=== PATIENT | female | born 2000 | race Caucasian/White ===

== ENCOUNTER 2019-03-12 19:07 | Inpatient (IN) | payer MEDICAID, OTHER ==
[2019-03-12] MEDS: Lactated Ringers 1,000 ML IV SCH (22:03)
[2019-03-12] MEDS ORDERED: Sodium Chloride 0.9% 10 ML Syringe FLUSH PRN ×2 (22:59→23:05)
[2019-03-13] MEDS: Lactated Ringers 1,000 ML IV SCH ×6 (01:15→22:30)
[2019-03-13] MEDS ORDERED: Lidocaine 2% 20 ML MDV INJECT ONE (09:49)
[2019-03-13] MEDS ORDERED: Oxytocin 10 Units/1 ML SDV IV ONE (09:49)
[2019-03-13] MEDS ORDERED: Midazolam 1 MG/ML 2 ML SDV IV ONE (09:49)
[2019-03-13] MEDS ORDERED: fentaNYL 100 MCG/2 ML SDV IV ONE (09:49)
[2019-03-13] MEDS ORDERED: ceFAZolin 1 GM Vial IV ONE (09:49)
[2019-03-13] MEDS ORDERED: Bupivacaine 0.25% 30 ML SDV INJECT ONE (09:49)
[2019-03-13] MEDS ORDERED: HYDROmorphone 2 MG/ML SDV IV ONE (09:49)
[2019-03-13] MEDS ORDERED: fentaNYL 400 MCG in Ropivacaine HCl/PF 200 ML IV ONE (09:49)
[2019-03-13] MEDS ORDERED: Naloxone 0.4 MG/ML SDV IVPUSH PRN ×2 (10:31→13:43)
[2019-03-13] MEDS ORDERED: Ondansetron 4 MG/2 ML SDV IVPUSH PRN (10:31)
[2019-03-13] MEDS ORDERED: diphenhydrAMINE 50 MG/ML SDV IV PRN (10:31)
[2019-03-13] MEDS ORDERED: ePHEDrine 50 MG/ML SDV IVPUSH PRN ×2 (10:31→13:43)
[2019-03-13] MEDS ORDERED: Promethazine 6.25 MG in Sodium Chloride 0.9% 50 ML IV PRN (10:31)
[2019-03-13] MEDS ORDERED: Promethazine 12.5 MG in Sodium Chloride 0.9% 50 ML IV PRN (10:31)
[2019-03-13] MEDS ORDERED: Lactated Ringers 500 ML IV SCH (10:45)
[2019-03-13] MEDS ORDERED: Scopolamine 1.5 MG Transdermal Patch TRDERM PRN (11:35)
[2019-03-13] MEDS ORDERED: Citric Acid/Sodium Citrate Solution 30 ML Cup PO ONE (11:35)
[2019-03-13] MEDS ORDERED: ceFAZolin 1 GM Vial IVPUSH ONE (11:38)
[2019-03-13] MEDS ORDERED: Carboprost Tromethamine 250 MCG/1 ML Amp IM ONE (13:07)
[2019-03-13] MEDS ORDERED: diphenhydrAMINE 50 MG/ML SDV IVPUSH PRN (13:43)
[2019-03-13] MEDS ORDERED: Labetalol 20 MG/4 ML Syringe IVPUSH STA (16:44)
[2019-03-13] MEDS ORDERED: Labetalol 20 MG/4 ML Syringe IVPUSH ONE (17:04)
--- NOTE | 2019-03-13 17:12 | PCM.LDHP ---
L&D History of Present Illness - General Date of Service: 03/13/19 Admit Problem/Dx: Patient Status Order with Admit Dx/Problem 03/12/19 22:00 Admission Status [Patient Status] [ADT] Routine 03/13/19 08:30 Admission Status [Patient Status] [ADT] Routine Admission Diagnosis/Problem Admission Diagnosis/Problem -related examination Source of Information: Patient History Limitations: Reports: No Limitations - History of Present Illness Introduction:: Admitted for latent labor. Mild to mod contractions - Related Data Allergies/Adverse Reactions: Allergies Allergy/AdvReac Type Severity Reaction Status Date / Time No Known Allergies Allergy Verified 03/12/19 18:07 Past Medical History - Past Health History Medical/Surgical History: Denies Medical/Surgical History [employer] History: Reports: Other OB/BYN History: edc 03/16/19 Other Musculoskeletal History: states she sprained her back @ 10 yrs old and now occassionally will have back spams Psychiatric History: Reports: Anxiety Other Psychiatric History: does have "anxiety" at times but takes no meds for anxiety Social & Family History - Family History Family Medical History: Noncontributory - Tobacco Use Smoking Status *Q: Never Smoker Second Hand Smoke Exposure: No - Caffeine Use Caffeine Use: Reports: None - Recreational Drug Use Recreational Drug Use: No H&P Review of Systems - Review of Systems: Review Of Systems: Comprehensive ROS is negative, except as noted in HPI. L&D Exam - Exam Exam: See Below - Vital Signs Vital Signs: Last Vital Signs Temp 98 F 03/13/19 15:45 Pulse 91 03/13/19 16:15 Resp 16 03/13/19 15:45 BP 150/125 H 03/13/19 16:15 Pulse Ox 100 03/13/19 15:46 Weight: 72.802 kg - OB Specific Contraction Duration (sec): 60-80 Contraction Frequency (min): 1.5-2 Contraction Intensity: Strong - Burk Score Burk Score Cervix Position: Midposition Burk Score Consistency: Firm Burk Score Dilation: 1-2 cm Burk Score Infant's Station: -3 - Exam General: Alert, Oriented HEENT: PERRLA, Conjunctiva Clear, EACs Clear, EOMI, Hearing Intact, Mucosa Moist & [place], Nares Patent, Normal Nasal Septum, Posterior Pharynx Clear, TMs Clear Neck: Supple, Trachea Midline Lungs: Clear to Auscultation, Normal Respiratory Effort Cardiovascular: Regular Rate, Regular Rhythm GI/Abdominal Exam: Normal Bowel Sounds, Soft, Non-Tender, No Organomegaly, No Distention, No Abnormal Bruit, No Mass, Pelvis Stable Rectal Exam: Normal Exam, Normal Rectal Tone Genitourinary: Normal external exam, Normal bimanual exam, Normal speculum exam Back Exam: Normal Inspection, Full Range of Motion Extremities: Normal Inspection, Normal Range of Motion, Non-Tender, No Pedal Edema, Normal Capillary Refill Skin: Warm, Dry, Intact Neurological: Cranial Nerves Intact, Reflexes Equal Bilateral Psychiatric: Alert, Normal Affect, Normal Mood - Patient Data Lab Results Last 24 hrs: Laboratory Results - last 24 hr 03/12/19 03/13/19 03/13/19 Range/Units 19:31 11:40 11:40 WBC 8.1 (4.5-12.0) X10-3/uL RBC 3.84 (3.23-5.20) x10(6)uL Hgb 10.3 L (11.5-15.5) g/dL Hct 32.0 (30.0-51.3) % MCV 83.3 (80-96) fL MCH 26.8 L (27.7-33.6) pg MCHC 32.2 (32.2-35.4) g/dL RDW 13.0 (11.5-15.5) % Plt Count 254 (125-369) X10(3)uL MPV 7.5 (7.4-10.4) fL Add Manual Diff Yes Neutrophils % (Manual) 68 (46-82) % Band Neutrophils % 6 (0-6) % Lymphocytes % (Manual) 17 (13-37) % Monocytes % (Manual) 6 (4-12) % Eosinophils % (Manual) 1 (0-5) % Metamyelocytes % 2 H (0-0) % Membrane Rupture Negative (NEGATIVE) Blood Type A POSITIVE Gel Antibody Screen Negative Result Diagrams: 03/13/19 11:40 - Problem List (1) Prolonged latent phase of labor SNOMED Code(s): 011659945 ICD Code: O63.0 - PROLONGED FIRST STAGE (OF LABOR) Status: Acute Current Visit: Yes Problem List Initiated/Reviewed/Updated: Yes Orders Last 24hrs: Active Orders 24 hr Category Date Time Status Admission Status [Patient Status] [ADT] Routine ADT 03/13/19 08:30 Active Ambulate [RC] PER UNIT ROUTINE Care 03/13/19 13:43 Active Bedrest [RC] ASDIRECTED Care 03/13/19 10:31 Active Monitoring [RC] CONTINUOUS Care 03/13/19 10:31 Active Notify Provider [RC] STAT Care 03/12/19 21:25 Active Oxygen Therapy [RC] ASDIRECTED Care 03/13/19 10:31 Active Pasero Opioid Induced Sedation [RC] Q1H Care 03/13/19 10:31 Active Peripheral IV Care [RC] . DIRECTED Care 03/13/19 10:31 Active RT Incentive Spirometry [RC] Q4HWA Care 03/13/19 13:43 Active Urinary Catheter Assessment [RC] 08,16,00 Care 03/13/19 10:31 Active Vital Signs [RC] PER UNIT ROUTINE Care 03/12/19 21:25 Active Vital Signs [RC] Q4H Care 03/13/19 13:43 Active Wound Care [RC] QSHIFT Care 03/13/19 13:43 Active Clear Liquid Diet [DIET] Diet 03/12/19 Dinner Active CBC WITH AUTO DIFF [HEME] AM Lab 03/14/19 05:11 Ordered PATIENT RETYPE [BBK] Routine Lab 03/13/19 11:40 Results TYPE AND SCREEN [BBK] Routine Lab 03/13/19 11:40 Results Labetalol [Normodyne] Med 03/13/19 17:04 Once 10 mg IVPUSH ONETIME ONE Lactated Ringers [Ringers, Lactated] 1,000 ml Med 03/13/19 13:45 Active IV ASDIRECTED Naloxone [Narcan] Med 03/13/19 13:43 Active 0.1 mg IVPUSH ONETIME PRN Ondansetron [Zofran] Med 03/13/19 10:31 Active 4 mg IVPUSH Q6H PRN Oxytocin/Normal Saline [Pitocin in NS 20 Units/1,000 ML Med 03/12/19 21:31 Active ] 20 unit in 1,000 ml IV TITRATE Promethazine [Phenergan] 12.5 mg Med 03/13/19 10:31 Active Sodium Chloride 0.9% [Normal Saline] 50 ml IV Q6H Promethazine [Phenergan] 6.25 mg Med 03/13/19 10:31 Active Sodium Chloride 0.9% [Normal Saline] 50 ml IV Q4H Scopolamine [Transderm-Scop] Med 03/13/19 11:35 Active 1.5 mg TRDERM Q72H PRN Sodium Chloride 0.9% [Saline Flush] Med 03/12/19 23:05 Active 10 ml FLUSH ASDIRECTED PRN diphenhydrAMINE [Benadryl] Med 03/13/19 13:43 Active 25 mg IVPUSH Q6H PRN ePHEDrine [ePHEDrine sulfate] Med 03/13/19 13:43 Active 5 mg IVPUSH ASDIRECTED PRN Do Not Administer Anticoagulant Meds [AST] Per Unit Oth 03/13/19 10:31 Ordered Routine Do Not Administer IV Narcs or Sedatives [AST] Per Unit Oth 03/13/19 10:31 Ordered Routine Epidural Catheter Management [OM.PC] Urgent Oth 03/13/19 10:31 Ordered Peripheral IV Insertion Adult [OM.PC] Routine Oth 03/12/19 22:59 Ordered Respiratory Rate [OM.PC] Routine Oth 03/13/19 10:31 Ordered Resuscitation Status Routine Resus Stat 03/13/19 13:43 Ordered Medication Orders Diphenhydramine HCl (Benadryl) 25 mg IVPUSH Q6H PRN PRN Reason: Itching or Nausea Ephedrine Sulfate (Ephedrine Sulfate) 5 mg IVPUSH ASDIRECTED PRN PRN Reason: Other Oxytocin/Sodium Chloride (Pitocin In Ns 20 Units/1,000 Ml) 20 unit in 1,000 mls @ 6 mls/hr IV TITRATE PRN; Protocol PRN Reason: IV Use Last Titration: 03/13/19 05:08 Dose: 4 munits/min, 12 mls/hr Admin: 03/12/19 22:01 Dose: 2 munits/min, 6 mls/hr Promethazine HCl 6.25 mg/ (Sodium Chloride) 50.25 mls @ 200 mls/hr IV Q4H PRN PRN Reason: Nausea/Vomiting Promethazine HCl 12.5 mg/ (Sodium Chloride) 50.5 mls @ 200 mls/hr IV Q6H PRN PRN Reason: Nausea/Vomiting Lactated Ringer's (Ringers, Lactated) 1,000 mls @ 250 mls/hr IV ASDIRECTED SOCRATES Labetalol HCl (Normodyne) 10 mg IVPUSH ONETIME ONE; Protocol Stop: 03/13/19 17:05 Naloxone HCl (Narcan) 0.1 mg IVPUSH ONETIME PRN PRN Reason: Respiratory Depression Ondansetron HCl (Zofran) 4 mg IVPUSH Q6H PRN PRN Reason: Nausea/Vomiting Scopolamine (Transderm-Scop) 1.5 mg TRDERM Q72H PRN PRN Reason: Nausea Last Admin: 03/13/19 12:06 Dose: 1.5 mg Sodium Chloride (Saline Flush) 10 ml FLUSH ASDIRECTED PRN PRN Reason: Keep Vein Open Assessment/Plan Comment:: We started pit last night to augment labor
--- NOTE | 2019-03-13 17:43 | OR ---
DATE OF OPERATION: 03/13/2019 PROCEDURE: Primary , lower uterine segment, transverse. CLINICAL RESEARCH MONITOR: Dr. Pan. PREOPERATIVE DIAGNOSIS: Nonreassuring heart tones. POSTOPERATIVE DIAGNOSES: Nonreassuring heart tones, preeclampsia, and nuchal cord. PERMISSION: The patient and the significant other agreed to the risks and benefits of this procedure. PROCEDURE DETAILS: The patient was taken to the OR, where the epidural was found to be adequate. She was placed in the usual supine position with a leftward tilt. She was draped and prepped in the usual sterile fashion. A Pfannenstiel incision was made along the lower abdominal area and carried to the underlying fascia, which was scored in the middle. This was carried with Guidry scissors to the lateral aspects. Using Lindy clamps, the fascia was dissected sharply from the rectus muscles, both inferiorly and superiorly. The muscles were in the middle and the peritoneum was entered sharply. After adequate exposure, a bladder blade was inserted and bladder reflection of the visceral peritoneum was placed around the lower uterine segment. Using a scalpel, the uterus was entered in a transverse fashion in the lower uterine segment. Then, the fingers were used to extend the incision. The baby was delivered. Nuchal cord encountered and reduced. The rest of the baby was delivered without any problems. The uterus was boggy and atonic, necessitating Pitocin and Hemabate intrauterine injection. This incision was closed in 2 layers and one suture of the [id number] was needed to achieve adequate hemostasis. After irrigation, the uterus was returned to the abdomen. The fascia was closed in one layer using 0 chromic. Then, the skin and subcutaneous tissue were closed with a 3-0 running stitch. The counts for sponges, needles, and instruments were correct x3. Estimated blood loss was about 600 mL. Urine was clear after the procedure. The Uribe catheter was left in situ. The patient was transferred to the Recovery. The baby had score of 8 and 9, and vigorous male infant. Please note that the patient did get 2 g of Ancef preoperatively on the table and afterwards, blood pressure was noted to be high, going up to 160/110. She did not complain of any vomiting or abdominal pain or headaches. /[id number] [place]/MICHELE MACIASD
[2019-03-13] MEDS ORDERED: Labetalol 20 MG/4 ML Syringe IVPUSH PRN (18:21)
[2019-03-13] MEDS: HYDROmorphone 2 MG/ML SDV IVPUSH PRN (21:57)
[2019-03-14] MEDS: Lactated Ringers 1,000 ML IV SCH ×2 (02:30→05:27)
[2019-03-14] MEDS: HYDROmorphone 2 MG/ML SDV IVPUSH PRN (03:45)
[2019-03-14] MEDS ORDERED: Acetaminophen/oxyCODONE 325-5 MG Tab PO PRN (08:20)
--- NOTE | 2019-03-14 08:26 | PCM.PNPP ---
- General Info Date of Service: 03/14/19 Subjective Update: Patient had elevated blood pressures yesterday evening going up to 160 systolic. The labetalol was used one time. She denies headache, chest pain or shortness of breath today. Urine output is good but pain is uncontrolled. Functional Status: Reports: Tolerating Diet. Denies: Pain Controlled, Ambulating - Review of Systems General: Denies: Fever HEENT: Reports: No Symptoms Pulmonary: Reports: No Symptoms Cardiovascular: Reports: No Symptoms Gastrointestinal: Reports: No Symptoms Genitourinary: Reports: No Symptoms Musculoskeletal: Reports: Shoulder Pain - General Info Date of Service: 03/14/19 - Patient Data Vital Signs - Most Recent: Last Vital Signs Temp 98.7 F 03/13/19 23:00 Pulse 125 H 03/14/19 06:00 Resp 18 03/14/19 03:00 BP 141/91 H 03/14/19 06:00 Pulse Ox 95 03/14/19 01:00 Weight - Most Recent: 72.802 kg I&O - Last 24 Hours: Intake & Output 03/13/19 03/14/19 03/14/19 22:59 06:59 14:59 Intake Total 2421 1806 Output Total 1700 Balance 721 1806 Lab Results - Last 24 Hours: Laboratory Results - last 24 hr 03/13/19 03/13/19 03/13/19 Range/Units 11:40 11:40 17:17 WBC 8.1 (4.5-12.0) X10-3/uL RBC 3.84 (3.23-5.20) x10(6)uL Hgb 10.3 L (11.5-15.5) g/dL Hct 32.0 (30.0-51.3) % MCV 83.3 (80-96) fL MCH 26.8 L (27.7-33.6) pg MCHC 32.2 (32.2-35.4) g/dL RDW 13.0 (11.5-15.5) % Plt Count 254 (125-369) X10(3)uL MPV 7.5 (7.4-10.4) fL Neut % (Auto) (46-82) % Lymph % (Auto) (13-37) % [place] % (Auto) (4-12) % Eos % (Auto) (1.0-5.0) % Baso % (Auto) (0-2) % Neut # (Auto) (1.6-8.3) # Lymph # (Auto) (0.6-5.0) # [place] # (Auto) (0.0-1.3) # Eos # (Auto) (0.0-0.8) # Baso # (Auto) (0.0-0.2) # Add Manual Diff Yes Neutrophils % (Manual) 68 (46-82) % Band Neutrophils % 6 (0-6) % Lymphocytes % (Manual) 17 (13-37) % Monocytes % (Manual) 6 (4-12) % Eosinophils % (Manual) 1 (0-5) % Metamyelocytes % 2 H (0-0) % Sodium (135-145) mmol/L Potassium (3.5-5.3) mmol/L Chloride (100-110) mmol/L Carbon Dioxide (21-32) mmol/L BUN (7-18) mg/dL Creatinine (0.55-1.02) mg/dL Est Cr Clr Drug Dosing mL/min Estimated GFR (MDRD) (>60) BUN/Creatinine Ratio (9-20) Glucose (80-116) mg/dL Calcium (8.6-10.2) mg/dL Total Bilirubin (0.1-1.3) mg/dL AST (5-25) IU/L ALT (12-36) U/L Alkaline Phosphatase (56-112) IU/L Total Protein (6.0-8.0) g/dL Albumin (3.5-5.2) g/dL Globulin g/dL Albumin/Globulin Ratio Urine Color Yellow (YELLOW) Urine Appearance Clear (CLEAR) Urine pH 7.0 H (5.0-6.5) Ur Specific [place] 1.010 (1.010-1.025) Urine Protein Negative (NEGATIVE) mg/dL Urine Glucose (UA) Normal (NORMAL) mg/dL Urine Ketones Negative (NEGATIVE) mg/dL Urine Occult Blood Negative (NEGATIVE) Urine Nitrite Negative (NEGATIVE) Urine Bilirubin Negative (NEGATIVE) Urine Urobilinogen Normal (NEGATIVE) mg/dL Ur Leukocyte Esterase Negative (NEGATIVE) Urine RBC 20-30 H (0-5) Urine WBC 0-5 (0-5) Ur Squamous Epith Cells Occasional (NS,R,O) Urine Bacteria Few H (NS) Blood Type A POSITIVE Gel Antibody Screen Negative 03/13/19 03/14/19 Range/Units 17:29 06:14 WBC 10.8 (4.5-12.0) X10-3/uL RBC 3.28 (3.23-5.20) x10(6)uL Hgb 9.0 L (11.5-15.5) g/dL Hct 27.3 L (30.0-51.3) % MCV 83.2 (80-96) fL MCH 27.4 L (27.7-33.6) pg MCHC 32.9 (32.2-35.4) g/dL RDW 13.1 (11.5-15.5) % Plt Count 224 (125-369) X10(3)uL MPV 7.6 (7.4-10.4) fL Neut % (Auto) 81.9 (46-82) % Lymph % (Auto) 10.8 L (13-37) % [place] % (Auto) 7.1 (4-12) % Eos % (Auto) 0 L (1.0-5.0) % Baso % (Auto) 0 (0-2) % Neut # (Auto) 8.8 H (1.6-8.3) # Lymph # (Auto) 1.2 (0.6-5.0) # [place] # (Auto) 0.8 (0.0-1.3) # Eos # (Auto) 0.0 (0.0-0.8) # Baso # (Auto) 0.0 (0.0-0.2) # Add Manual Diff Neutrophils % (Manual) (46-82) % Band Neutrophils % (0-6) % Lymphocytes % (Manual) (13-37) % Monocytes % (Manual) (4-12) % Eosinophils % (Manual) (0-5) % Metamyelocytes % (0-0) % Sodium 143 (135-145) mmol/L Potassium 4.2 (3.5-5.3) mmol/L Chloride 107 (100-110) mmol/L Carbon Dioxide 26 (21-32) mmol/L BUN 6 L (7-18) mg/dL Creatinine 0.6 (0.55-1.02) mg/dL Est Cr Clr Drug Dosing 118.29 mL/min Estimated GFR (MDRD) > 60 (>60) BUN/Creatinine Ratio 10.0 (9-20) Glucose 77 L (80-116) mg/dL Calcium 8.3 L (8.6-10.2) mg/dL Total Bilirubin 0.4 (0.1-1.3) mg/dL AST 20 (5-25) IU/L ALT 9 L (12-36) U/L Alkaline Phosphatase 246 H (56-112) IU/L Total Protein 5.4 L (6.0-8.0) g/dL Albumin 1.9 L (3.5-5.2) g/dL Globulin 3.5 g/dL Albumin/Globulin Ratio 0.5 Urine Color (YELLOW) Urine Appearance (CLEAR) Urine pH (5.0-6.5) Ur Specific [place] (1.010-1.025) Urine Protein (NEGATIVE) mg/dL Urine Glucose (UA) (NORMAL) mg/dL Urine Ketones (NEGATIVE) mg/dL Urine Occult Blood (NEGATIVE) Urine Nitrite (NEGATIVE) Urine Bilirubin (NEGATIVE) Urine Urobilinogen (NEGATIVE) mg/dL Ur Leukocyte Esterase (NEGATIVE) Urine RBC (0-5) Urine WBC (0-5) Ur Squamous Epith Cells (NS,R,O) Urine Bacteria (NS) Blood Type Gel Antibody Screen Med Orders - Current: Current Medications Diphenhydramine HCl (Benadryl) 25 mg IVPUSH Q6H PRN PRN Reason: Itching or Nausea Ephedrine Sulfate (Ephedrine Sulfate) 5 mg IVPUSH ASDIRECTED PRN PRN Reason: Other Promethazine HCl 6.25 mg/ (Sodium Chloride) 50.25 mls @ 200 mls/hr IV Q4H PRN PRN Reason: Nausea/Vomiting Promethazine HCl 12.5 mg/ (Sodium Chloride) 50.5 mls @ 200 mls/hr IV Q6H PRN PRN Reason: Nausea/Vomiting Ibuprofen (Motrin) 600 mg PO Q6H SOCRATES Labetalol HCl (Normodyne) 10 mg IVPUSH Q4H PRN; Protocol PRN Reason: Hypertension Naloxone HCl (Narcan) 0.1 mg IVPUSH ONETIME PRN PRN Reason: Respiratory Depression Ondansetron HCl (Zofran) 4 mg IVPUSH Q6H PRN PRN Reason: Nausea/Vomiting Oxycodone/Acetaminophen (Percocet 325-5 Mg) 1 tab PO Q4H PRN PRN Reason: Breakthrough Pain Scopolamine (Transderm-Scop) 1.5 mg TRDERM Q72H PRN PRN Reason: Nausea Last Admin: 03/13/19 12:06 Dose: 1.5 mg Sodium Chloride (Saline Flush) 10 ml FLUSH ASDIRECTED PRN PRN Reason: Keep Vein Open Last Admin: 03/13/19 22:00 Dose: 10 ml Discontinued Medications Carboprost Tromethamine (Hemabate Ds) 250 mcg IM .STK-MED ONE Stop: 03/13/19 13:08 Last Admin: 03/13/19 13:07 Dose: 250 mcg Cefazolin Sodium (Ancef) 2 gm IVPUSH ONETIME ONE Stop: 03/13/19 11:39 Last Admin: 03/13/19 12:06 Dose: 2 gm Citric Acid/Sodium Citrate (Bicitra Solution) 30 ml PO ONETIME ONE Stop: 03/13/19 11:36 Last Admin: 03/13/19 12:05 Dose: 30 ml Diphenhydramine HCl (Benadryl) 25 mg IV ASDIRECTED PRN PRN Reason: Pruritus Ephedrine Sulfate (Ephedrine Sulfate) 5 mg IVPUSH ASDIRECTED PRN PRN Reason: Hypotension Hydromorphone HCl (Dilaudid) 1 mg IVPUSH Q2H PRN PRN Reason: Breakthrough Pain Last Admin: 03/14/19 03:45 Dose: 1 mg Lactated Ringer's (Ringers, Lactated) 1,000 mls @ 125 mls/hr IV ASDIRECTED SOCRATES Last Admin: 03/13/19 13:49 Dose: 125 mls/hr Oxytocin 20 unit/ Sodium (Chloride) 1,002 mls @ 6.01 mls/hr IV TITRATE SOCRATES; Protocol Oxytocin/Sodium Chloride (Pitocin In Ns 20 Units/1,000 Ml) 20 unit in 1,000 mls @ 6 mls/hr IV TITRATE PRN; Protocol PRN Reason: IV Use Last Titration: 03/13/19 05:08 Dose: 4 munits/min, 12 mls/hr Lactated Ringer's (Ringers, Lactated) 1,000 mls @ 999 mls/hr IV BOLUS SOCRATES Lactated Ringer's (Ringers, Lactated) 1,000 mls @ 250 mls/hr IV ASDIRECTED SOCRATES Last Admin: 03/14/19 05:27 Dose: 250 mls/hr Labetalol HCl (Normodyne) 20 mg IVPUSH ONETIME STA; Protocol Stop: 03/13/19 16:45 Last Admin: 03/13/19 18:25 Dose: Not Given Labetalol HCl (Normodyne) 10 mg IVPUSH ONETIME ONE; Protocol Stop: 03/13/19 17:05 Last Admin: 03/13/19 17:31 Dose: 10 mg Naloxone HCl (Narcan) 0.1 mg IVPUSH ONETIME PRN PRN Reason: Sedation Sodium Chloride (Saline Flush) 10 ml FLUSH ASDIRECTED PRN PRN Reason: Keep Vein Open - Infant Interaction Infant Disposition, : [place] in Room with Family Feeding: Attempted ; Nursed Fair/Poor Support Person: Significant Other - Recovery Exam Fundal Tone: Firm Fundal Level: 1 Fingerbreadths Above Umbilicus Fundal Placement: Midline Lochia Amount: Small Lochia Color: Rubra/Red Perineum Description: Edematous Episiotomy/Laceration: None Bladder Status: Indwelling Catheter in Place Urinary Elimination: Indwelling Catheter - Exam General: Alert, Oriented HEENT: Pupils Equal Neck: Supple Lungs: Clear to Auscultation Cardiovascular: Regular Rate, Tachycardia GI/Abdominal Exam: Soft Skin: Warm Wound/Incisions: Healing Well, Dressing Dry and Intact, No Drainage Psy/Mental Status: Normal Affect, Normal Mood - Problem List & Annotations (1) care and examination SNOMED Code(s): 420874018, 155636986 Code(s): Z39.2 - ENCOUNTER FOR ROUTINE FOLLOW-UP Status: Acute Current Visit: Yes (2) Prolonged latent phase of labor SNOMED Code(s): 092271772 Code(s): O63.0 - PROLONGED FIRST STAGE (OF LABOR) Status: Acute Current Visit: Yes (3) Delivery by section SNOMED Code(s): 341896060 Code(s): LFR8951 - Status: Acute Current Visit: Yes (4) Gestational hypertension SNOMED Code(s): 948645993 Code(s): O13.9 - GESTATIONAL HTN W/O SIGNIFICANT PROTEINURIA, UNSP TRIMESTER Status: Acute Current Visit: Yes Qualifiers: Trimester: third trimester Qualified Code(s): O13.3 - Gestational [ -induced] hypertension without significant proteinuria, third trimester (5) Tachycardia SNOMED Code(s): 1703653 Code(s): R00.0 - TACHYCARDIA, UNSPECIFIED Status: Acute Current Visit: Yes - Problem List Review Problem List Initiated/Reviewed/Updated: Yes - My Orders Last 24 Hours: My Active Orders 03/13/19 08:30 Admission Status [Patient Status] [ADT] Routine 03/13/19 11:35 Scopolamine [Transderm-Scop] 1.5 mg TRDERM Q72H PRN 03/13/19 13:43 Ambulate [RC] PER UNIT ROUTINE RT Incentive Spirometry [RC] Q4HWA Vital Signs [RC] 00,04,08,12,16,20 Wound Care [RC] QSHIFT Naloxone [Narcan] 0.1 mg IVPUSH ONETIME PRN diphenhydrAMINE [Benadryl] 25 mg IVPUSH Q6H PRN ePHEDrine [ePHEDrine sulfate] 5 mg IVPUSH ASDIRECTED PRN Resuscitation Status Routine 03/13/19 18:21 Labetalol [Normodyne] 10 mg IVPUSH Q4H PRN 03/14/19 08:20 Urinary Catheter Removal [RC] Per Unit Routine Acetaminophen/oxyCODONE [Percocet 325-5 MG] 1 tab PO Q4H PRN Convert IV to Saline Lock [OM.PC] Urgent 03/14/19 08:30 Ibuprofen [Motrin] 600 mg PO Q6H 03/14/19 Lunch Regular Diet [DIET] - Plan Plan:: Discontinue IV fluids and Uribe. Start Percocet for pain control and Motrin. Encourage ambulation, advance to oral regular diet. Observe blood pressure and tachycardia. Do not seems to be good urine proteins were negative and liver functions were normal.
[2019-03-14] MEDS: Ibuprofen 600 MG Tab PO SCH ×3 (08:47→20:38)
[2019-03-15] MEDS: Ibuprofen 600 MG Tab PO SCH ×4 (02:57→19:37)
--- NOTE | 2019-03-15 08:16 | PCM.PNPP ---
- General Info Date of Service: 03/15/19 Functional Status: Reports: Pain Controlled - Review of Systems General: Reports: No Symptoms Pulmonary: Reports: No Symptoms Gastrointestinal: Reports: Diarrhea - General Info Date of Service: 03/15/19 - Patient Data Vital Signs - Most Recent: Last Vital Signs Temp 98 F 03/15/19 04:00 Pulse 91 03/15/19 04:00 Resp 18 03/15/19 04:00 BP 139/85 03/15/19 04:00 Pulse Ox 96 03/15/19 04:00 Weight - Most Recent: 72.802 kg Med Orders - Current: Current Medications Diphenhydramine HCl (Benadryl) 25 mg IVPUSH Q6H PRN PRN Reason: Itching or Nausea Ephedrine Sulfate (Ephedrine Sulfate) 5 mg IVPUSH ASDIRECTED PRN PRN Reason: Other Promethazine HCl 6.25 mg/ (Sodium Chloride) 50.25 mls @ 200 mls/hr IV Q4H PRN PRN Reason: Nausea/Vomiting Promethazine HCl 12.5 mg/ (Sodium Chloride) 50.5 mls @ 200 mls/hr IV Q6H PRN PRN Reason: Nausea/Vomiting Ibuprofen (Motrin) 600 mg PO Q6H SOCRATES Last Admin: 03/15/19 02:57 Dose: 600 mg Labetalol HCl (Normodyne) 10 mg IVPUSH Q4H PRN; Protocol PRN Reason: Hypertension Naloxone HCl (Narcan) 0.1 mg IVPUSH ONETIME PRN PRN Reason: Respiratory Depression Ondansetron HCl (Zofran) 4 mg IVPUSH Q6H PRN PRN Reason: Nausea/Vomiting Oxycodone/Acetaminophen (Percocet 325-5 Mg) 1 tab PO Q4H PRN PRN Reason: Breakthrough Pain Last Admin: 03/14/19 13:04 Dose: 1 tab Scopolamine (Transderm-Scop) 1.5 mg TRDERM Q72H PRN PRN Reason: Nausea Last Admin: 03/13/19 12:06 Dose: 1.5 mg Sodium Chloride (Saline Flush) 10 ml FLUSH ASDIRECTED PRN PRN Reason: Keep Vein Open Last Admin: 03/13/19 22:00 Dose: 10 ml Discontinued Medications Carboprost Tromethamine (Hemabate Ds) 250 mcg IM .STK-MED ONE Stop: 03/13/19 13:08 Last Admin: 03/13/19 13:07 Dose: 250 mcg Cefazolin Sodium (Ancef) 2 gm IVPUSH ONETIME ONE Stop: 03/13/19 11:39 Last Admin: 03/13/19 12:06 Dose: 2 gm Citric Acid/Sodium Citrate (Bicitra Solution) 30 ml PO ONETIME ONE Stop: 03/13/19 11:36 Last Admin: 03/13/19 12:05 Dose: 30 ml Diphenhydramine HCl (Benadryl) 25 mg IV ASDIRECTED PRN PRN Reason: Pruritus Ephedrine Sulfate (Ephedrine Sulfate) 5 mg IVPUSH ASDIRECTED PRN PRN Reason: Hypotension Hydromorphone HCl (Dilaudid) 1 mg IVPUSH Q2H PRN PRN Reason: Breakthrough Pain Last Admin: 03/14/19 03:45 Dose: 1 mg Lactated Ringer's (Ringers, Lactated) 1,000 mls @ 125 mls/hr IV ASDIRECTED SOCRATES Last Admin: 03/13/19 13:49 Dose: 125 mls/hr Oxytocin 20 unit/ Sodium (Chloride) 1,002 mls @ 6.01 mls/hr IV TITRATE SOCRATES; Protocol Oxytocin/Sodium Chloride (Pitocin In Ns 20 Units/1,000 Ml) 20 unit in 1,000 mls @ 6 mls/hr IV TITRATE PRN; Protocol PRN Reason: IV Use Last Titration: 03/13/19 05:08 Dose: 4 munits/min, 12 mls/hr Lactated Ringer's (Ringers, Lactated) 1,000 mls @ 999 mls/hr IV BOLUS SOCRATES Lactated Ringer's (Ringers, Lactated) 1,000 mls @ 250 mls/hr IV ASDIRECTED SOCRATES Last Admin: 03/14/19 05:27 Dose: 250 mls/hr Labetalol HCl (Normodyne) 20 mg IVPUSH ONETIME STA; Protocol Stop: 03/13/19 16:45 Last Admin: 03/13/19 18:25 Dose: Not Given Labetalol HCl (Normodyne) 10 mg IVPUSH ONETIME ONE; Protocol Stop: 03/13/19 17:05 Last Admin: 03/13/19 17:31 Dose: 10 mg Naloxone HCl (Narcan) 0.1 mg IVPUSH ONETIME PRN PRN Reason: Sedation Sodium Chloride (Saline Flush) 10 ml FLUSH ASDIRECTED PRN PRN Reason: Keep Vein Open - Infant Interaction Disposition, : in Room with Family Feeding: Attempted ; Nursed Fair/Poor Support Person: Significant Other - Recovery Exam Fundal Tone: Firm Fundal Level: At Umbilicus Fundal Placement: Midline Lochia Amount: Small Lochia Color: Rubra/Red Perineum Description: Edematous Episiotomy/Laceration: None Bladder Status: Voiding Urinary Elimination: Voided - Exam General: Alert, Oriented HEENT: Pupils Equal Skin: Warm Neurological: No New Focal Deficit Psy/Mental Status: Alert - Problem List & Annotations (1) care and examination SNOMED Code(s): 297985453, 600786888 Code(s): Z39.2 - ENCOUNTER FOR ROUTINE FOLLOW-UP Status: Acute Current Visit: Yes (2) Prolonged latent phase of labor SNOMED Code(s): 443930327 Code(s): O63.0 - PROLONGED FIRST STAGE (OF LABOR) Status: Acute Current Visit: Yes (3) Delivery by section SNOMED Code(s): 647350057 Code(s): YNF7117 - Status: Acute Current Visit: Yes (4) Gestational hypertension SNOMED Code(s): 920376310 Code(s): O13.9 - GESTATIONAL HTN W/O SIGNIFICANT PROTEINURIA, UNSP TRIMESTER Status: Acute Current Visit: Yes Qualifiers: Trimester: third trimester Qualified Code(s): O13.3 - Gestational [ -induced] hypertension without significant proteinuria, third trimester (5) Tachycardia SNOMED Code(s): 8072356 Code(s): R00.0 - TACHYCARDIA, UNSPECIFIED Status: Acute Current Visit: Yes - Problem List Review Problem List Initiated/Reviewed/Updated: Yes - My Orders Last 24 Hours: My Active Orders 03/14/19 08:00 Ibuprofen [Motrin] 600 mg PO Q6H 03/14/19 08:20 Urinary Catheter Removal [RC] Per Unit Routine Acetaminophen/oxyCODONE [Percocet 325-5 MG] 1 tab PO Q4H PRN Convert IV to Saline Lock [OM.PC] Urgent 03/14/19 Lunch Regular Diet [DIET] - Plan Plan:: Continue current management and DC tomorrow
[2019-03-16] MEDS: Ibuprofen 600 MG Tab PO SCH ×2 (02:08→08:42)
--- NOTE | 2019-03-16 12:35 | DISCH ---
DISCHARGE DATE: 03/16/2019 REASON FOR ADMISSION: 1. Early-onset labor. 2. Intrauterine . DISCHARGE DIAGNOSES: 1. Primary low-transverse section. 2. Gestational hypertension. BRIEF HISTORY: This is a 18-year-old female admitted because of uterine contractions, augmented with Pitocin, but due to nonreassuring heart tones, underwent a on Friday. Postop, she was noted to have elevated blood pressures and even onetime needed labetalol. However, she did not have any protein in the urine and her blood pressure improved progressively. She has, otherwise, done well and is ready to go home today. DISCHARGE MEDICATIONS: 1. vitamins. 2. Motrin 600 mg every 6 hours. FOLLOWUP: With me in the office in 1 week. Please note that I spent more than 35 minutes in the discharge of the patient. /[id number] LITTLE/MICHELE
== END 2019-03-16 09:50 | disposition home or self-care (01) | DRG 788 ==
LOC: FB.OBCHECK 19:07 → FB.OB 19:07 → UNDOADMOB 19:07 → FB.OB 19:07 → UNDOADMOB 19:08 → FB.OB 19:08 → FB.OBCHECK 21:59 → FB.OB 22:00 → EDSTATUS 23:04 → FB.OB 03-13 08:29 → FB.OBCHECK 03-13 08:29 → OBSVTOIN 03-13 08:30 → UNDOADMIN 03-13 08:30 → FB.OB 03-13 08:30 → UNDODISIN 03-16 09:50
PROVIDERS: ADMIT Family Medicine; ATTEND Family Medicine
PROC: 10D00Z1 Extraction of Products of Conception, Low, Open Approach (ICD-10-PCS; principal; 2019-03-13)
DX: O63.0 Prolonged first stage (of labor) (principal); O13.4 Gestational [pregnancy-induced] hypertension without significant proteinuria, complicating childbirth; O14.94 Unspecified pre-eclampsia, complicating childbirth; Z37.0 Single live birth; Z3A.39 39 weeks gestation of pregnancy
CPT/HCPCS: 36415; 51702; 59409; 80053; 81001; 84112; 85025; 86850; 86900; 86901; 88307; 99211; A9270-GY; J0690; J1170; J2001; J2250; J2590; J2795; J3010; J3490; J7120

== ENCOUNTER 2020-03-06 02:20 | Emergency (ER) | payer SELFPAY ==
--- NOTE | 2020-03-06 03:24 | EDM.PDOC ---
ED HPI GENERAL MEDICAL PROBLEM - General Chief Complaint: Genitourinary Problem Stated Complaint: PELVIC PAIN Time Seen by Provider: 03/06/20 02:30 Source of Information: Reports: Patient History Limitations: Reports: No Limitations - History of Present Illness INITIAL COMMENTS - FREE TEXT/NARRATIVE: pt has burning sensation with urination , vaginal discharge with odor , has no back pain ,no fever or chills States her prior sexual partner has chlamydia Onset: Today Onset Date: 03/06/20 Duration: Hour(s):, Getting Worse Location: Reports: Abdomen Quality: Reports: Ache, Burning Severity: Moderate Improves with: Reports: None Worsens with: Reports: None Associated Symptoms: Reports: No Other Symptoms burning pain with voiding Pain Score (Numeric/FACES): 8 - Related Data Allergies Allergy/AdvReac Type Severity Reaction Status Date / Time No Known Allergies Allergy Verified 03/12/19 18:07 Home Meds: Home Meds Ibuprofen [Motrin] 600 mg PO Q6H #30 tablet 03/16/19 [Rx] Sulfamethoxazole/Trimethoprim [Bactrim Ds Tablet] 1 each PO BID #14 tablet 03/06/20 [Rx] Past Medical History - Past Health History Medical/Surgical History: Denies Medical/Surgical History 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 Other Musculoskeletal History: states she sprained her back @ 10 yrs old and now occassionally will have back spams Psychiatric History: Reports: Anxiety Other Psychiatric History: does have "anxiety" at times but takes no meds for anxiety Social & Family History - Family History Family Medical History: No Pertinent Family History - Tobacco Use Tobacco Use Status *Q: Current Every Day Tobacco User Years of Tobacco use: 1 Packs/Tins Daily: 0.2 - Caffeine Use Caffeine Use: Reports: Coffee - Recreational Drug Use Recreational Drug Use: No ED ROS GENERAL - Review of Systems Review Of Systems: Comprehensive ROS is negative, except as noted in HPI. ED EXAM, RENAL/ - Physical Exam Exam: See Below Exam Limited By: No Limitations General Appearance: Alert, WD/WN, No Apparent Distress Nose: Normal Inspection Throat/Mouth: Normal Oropharynx Head: Atraumatic, Normocephalic Neck: Supple, Non-Tender Respiratory/Chest: No Respiratory Distress, Lungs Clear Cardiovascular: Regular Rate, Rhythm GI/Abdominal: Soft, No Abnormal Bruit (Female) Exam: Deferred Rectal (Female) Exam: Deferred Back Exam: Normal Inspection, Full Range of Motion Neurological: Alert, Oriented, CN II-XII Intact Psychiatric: Normal Affect, Normal Mood Skin Exam: Warm, Dry, Intact Course - Vital Signs Last Recorded V/S: Last Vital Signs Temp 36.4 C 03/06/20 04:15 Pulse 88 03/06/20 04:15 Resp 17 03/06/20 04:15 BP 124/71 03/06/20 04:15 Pulse Ox 100 03/06/20 04:15 - Orders/Labs/Meds Orders: Active Orders 24 hr Category Date Time Status CHLAMYDIA/GC AMPLIFICATION Routine Lab 03/06/20 04:05 Received CULTURE URINE [RM] Stat Lab 03/06/20 02:51 Received Labs: Laboratory Tests 03/06/20 Range/Units 02:51 Urine Color Yellow (YELLOW) Urine Appearance Slightly cloudy (CLEAR) Urine pH 5.0 (5.0-6.5) Ur Specific [place] 1.030 H (1.010-1.025) Urine Protein Trace (NEGATIVE) mg/dL Urine Glucose (UA) Normal (NORMAL) mg/dL Urine Ketones 15 H (NEGATIVE) mg/dL Urine Occult Blood Large H (NEGATIVE) Urine Nitrite Negative (NEGATIVE) Urine Bilirubin Negative (NEGATIVE) Urine Urobilinogen 1 H (NEGATIVE) mg/dL Ur Leukocyte Esterase Small H (NEGATIVE) Urine RBC 5-10 H (0-5) Urine WBC 5-10 H (0-5) Ur Squamous Epith Cells Few H (NS,R,O) Urine Bacteria Few H (NS) Urine Mucus Moderate H (NS) Meds: Medications Discontinued Medications Generic Name Dose Route Start Last Admin Trade Name Freq PRN Reason Stop Dose Admin Azithromycin 1,000 mg 03/06/20 03:20 03/06/20 04:14 Zithromax PO 03/06/20 03:21 1,000 mg ONETIME ONE Administration Ceftriaxone Sodium 1 gm 03/06/20 03:22 03/06/20 04:14 Rocephin IM 03/06/20 03:23 1 gm ONETIME ONE Administration Departure - Departure Time of Disposition: 04:22 Disposition: Home, Self-Care 01 Clinical Impression: UTI, Urinary tract infectious disease, Chlamydia contact, untreated - Discharge Information *PRESCRIPTION DRUG MONITORING PROGRAM REVIEWED*: Not Applicable *COPY OF PRESCRIPTION DRUG MONITORING REPORT IN PATIENT KATELYNN: Not Applicable Prescriptions: Sulfamethoxazole/Trimethoprim [Bactrim Ds Tablet] 1 each PO BID #14 tablet Instructions: Urinary Tract Infection, Adult, [id number], Urinary Tract Infection, Adult Referrals: Pepe Perez MD [Primary Care Provider] - Forms: ED Department Discharge Additional Instructions: drink fluid follow up with your primary care as needed Sepsis Event Note (ED) - Evaluation Sepsis Screening Result: No Definite Risk - Focused Exam Vital Signs: Vital Signs Temp Pulse Resp BP Pulse Ox 03/06/20 04:15 36.4 C 88 17 124/71 100 - My Orders Last 24 Hours: My Active Orders 03/06/20 02:51 CULTURE URINE [RM] Stat 03/06/20 04:05 CHLAMYDIA/GC AMPLIFICATION Routine - Assessment/Plan Last 24 Hours: My Active Orders 03/06/20 02:51 CULTURE URINE [RM] Stat 03/06/20 04:05 CHLAMYDIA/GC AMPLIFICATION Routine
[2020-03-06] MEDS: cefTRIAXone 1 GM Vial IM ONE (04:14)
[2020-03-06] MEDS: Azithromycin 500 MG Tab PO ONE (04:14)
[2020-03-08 11:11] LABS: CHLAMYDIA TRACHOMATIS, NAA Negative (Negative); NEISSERIA GONORRHOEAE, NAA Negative (Negative)
== END 2020-03-06 04:22 | disposition home or self-care (01) ==
LOC: FB.ED 02:20
DX: N39.0 Urinary tract infection, site not specified (principal); A74.9 Chlamydial infection, unspecified; F17.210 Nicotine dependence, cigarettes, uncomplicated
CPT/HCPCS: 81001; 87086; 87491; 87591; 96372; 99283; A9270-GY; J0696